=== PATIENT | female | born 1990 | race African-American/Black ===

== ENCOUNTER 2020-04-01 08:40 | Inpatient (IN) | payer OTHER ==
--- NOTE | 2020-04-01 09:41 | BHS.RME ---
Substance Use & Tx History - Substance Use History Alcohol Substance amount: 2 pints of vodka,1 liter of wine Frequency of use: Daily Substance route: Oral Date of Last Use: 03/31/20 - Last Treatment Date of last treatment: 02/2020 in [facility] 01/2020 not complete Where was last treatment: Detox Physical/Psych/Mental Status - Behavior Eye Contact: Normal - Cooperativeness Cooperativeness: Cooperative - Thinking Thought Processes: Logical Thought content: Future oriented - Physical Health Problems Is patient presently having any pain?: No Does patient presently have any injuries (include location): No Does patient currently have a fever: No CIWA Nausea/Vomitin Muscle Tremors: 3 Anxiety: 3 Agitation: 3 Paroxysmal Sweats: No Perspiration Orientation: 0-Oriented Tacttile Disturbances: 1-Very Mild Itch/Numbness Auditory Disturbances: 0-None Visual Disturbances: 0-None Headache: 2-Mild CIWA-Ar Total Score: 14
--- NOTE | 2020-04-01 09:55 | HP ---
CIWA Score Nausea/Vomitin Muscle Tremors: 3 Anxiety: 3 Agitation: 3 Paroxysmal Sweats: No Perspiration Orientation: 0-Oriented Tacttile Disturbances: 1-Very Mild Itch/Numbness Auditory Disturbances: 0-None Visual Disturbances: 0-None Headache: 2-Mild CIWA-Ar Total Score: 14 - Admission Criteria OASAS Guidelines: Admission for Medically Managed Detox: Requires at least one of the followin. CIWA greater than 12 2. Seizures within the past 24 hours 3. Delirium tremens within the past 24 hours 4. Hallucinations within the past 24 hours 5. Acute intervention needed for co occurring medical disorder 6. Acute intervention needed for co occurring psychiatric disorder 7. Severe withdrawal that cannot be handled at a lower level of care (continued vomiting, continued diarrhea, abnormal vital signs) requiring intravenous medication and/or fluids 8. Admitting History and Physical - Admission Chief Complaint: i need help to stop drinking alcohol History of Present Illness: this 29 years old female with alcohol dependence seeking detox History Source: Patient Limitations to Obtaining History: No Limitations - Past Medical History ...LMP: 03/24/20 ...: No Psych: Yes: Anxiety, Bipolar, Other (ptsd) Additional Past Medical History: induced in 09/2019 - Smoking History Smoking history: Current every day smoker Have you smoked in the past 12 months: Yes - Alcohol/Substance Use Hx Alcohol Use: Yes History of Substance Use: reports: None - Social History Usual Living Arrangement: Yes: With Parent Do you think of yourself as: Straight/Heterosexual Occupation: unemployed History of Recent Travel: No 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,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,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 Admission ROS S - HPI Chief Complaint: i need help to stop grinking alcohol Allergies/Adverse Reactions: Allergies Allergy/AdvReac Type Severity Reaction Status Date / Time No Known Allergies Allergy Verified 04/01/20 10:01 History of Present Illness: this 29 years old female with alcohol dependence,seeking detox,seen in [facility] last night,receiving ativan, seizure last syncope had vivitrol injection 3 days ago 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 no significant period of sobriety unemployed,no legal issue smoke e cigarette seen in [facility] last night received ativan Exam Limitations: No Limitations - Ebola screening Have you traveled outside of the country in the last 21 days: No Have you had contact with anyone from an Ebola affected area: No Have you been sick,other than usual withdrawal symptoms: No Do you have a fever: No - Review of Systems Constitutional: Loss of Appetite, Night Sweats, Changes in sleep EENT: reports: Nose Congestion Respiratory: reports: No Symptoms reported Cardiac: reports: No Symptoms Reported GI: reports: Diarrhea, Nausea, Abdominal cramping : reports: No Symptoms Reported Musculoskeletal: reports: Back Pain, Muscle Pain Integumentary: reports: Dryness Neuro: reports: Headache, Tremors Endocrine: reports: No Symptoms Reported Hematology: reports: No Symptoms Reported Psychiatric: reports: No Sypmtoms Reported, Judgement Intact, Mood/Affect Appro piate, Anxious (bipolar disorder) Patient History - Patient Medical History Hx Anemia: No Hx Asthma: No Hx Chronic Obstructive Pulmonary Disease (COPD): No Hx Cancer: No Hx Cardiac Disorders: No Hx Congestive Heart Failure: No Hx Hypertension: No Hx Hypercholesterolemia: No Hx Pacemaker: No HX Cerebrovascular Accident: No Hx Seizures: Yes (last 01/2020) Hx Dementia: No Hx Diabetes: No Hx Gastrointestinal Disorders: No Hx Liver Disease: No Hx Genitourinary Disorders: No Hx Sexually Transmitted Disorders: No Hx Renal Disease (ESRD): No Hx Thyroid Disease: No Hx Human Immunodeficiency Virus (HIV): No (last 01/2020) Hx Hepatitis C: No Hx Depression: No Hx Suicide Attempt: Yes (overdose at age 25 years) Hx Bipolar Disorder: Yes Hx Schizophrenia: No Other Medical History: no suicidal,no homicidal,on vivitrol injection last 3 days ago - Patient Surgical History Other Surgical History: induced in 09/2019 - PPD History Previous Implant?: Yes Documented Results: Negative w/o proof Implanted On Prior [facility] Admission?: No PPD to be Administered?: Yes - Reproductive History Patient is a Female of Child Bearing Age (11 -55 yrs old): Yes Last Menstrual Period: 04/01/20 Patient : No - Smoking Cessation Smoking history: Current every day smoker Have you smoked in the past 12 months: Yes Hx Chewing Tobacco Use: No Initiated information on smoking cessation: Yes 'Breaking Loose' booklet given: 04/01/20 - Substance & Tx. History Hx Alcohol Use: Yes Hx Substance Use: No Substance Use Type: Alcohol Hx Substance Use Treatment: Yes - Substances abused Alcohol Substance route: Oral Frequency: Daily Amount used: 2pints of vodka/1 litre of wine Age of first use: 18 Date of last use: 03/31/20 Admission Physical Exam [facility] - Vital Signs Vital Signs: Vital Signs Temperature 97.8 F 04/01/20 10:26 Pulse Rate 96 H 04/01/20 10:26 Respiratory Rate 18 04/01/20 10:26 Blood Pressure 150/103 H 04/01/20 10:26 O2 Sat by Pulse Oximetry (%) - Physical General Appearance: Yes: Moderate Distress, Tremorous, Anxious HEENTM: Yes: Normal ENT Inspection, EDGAR, Pharynx Normal Respiratory: Yes: Within Normal Limits, Lungs Clear, Normal Breath Sounds Neck: Yes: Within Normal Limits, Supple, Trachea in good position Breast: Yes: Breast Exam Deferred Cardiology: Yes: Within Normal Limits, Regular Rhythm, Regular Rate, S1, S2 Abdominal: Yes: Within Normal Limits, Normal Bowel Sounds, Non Tender, Flat, Soft Genitourinary: Yes: Within Normal Limits Back: Yes: Muscle Spasm Musculoskeletal: Yes: Back pain, Muscle Pain Extremities: Yes: Tremors 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
[2020-04-01 10:36] VITALS: BMI 23.1
[2020-04-01] MEDS ORDERED: LORazepam 1 MG TABLET PO PRN (10:59)
[2020-04-01] MEDS ORDERED: NICOTINE POLACRILEX 2 MG GUM BUC PRN (11:00)
[2020-04-01] MEDS ORDERED: ONDANSETRON *ODT* 4 MG TABLET SL ONE (11:00)
[2020-04-01] MEDS ORDERED: MENTHOL/PHENOL 1 EACH UD MM PRN (11:00)
[2020-04-01] MEDS ORDERED: METHOCARBAMOL 500 MG TABLET PO PRN (11:00)
[2020-04-01] MEDS ORDERED: MAG HYDROX/AL HYDROX/SIMETH 30 ML UNIT-DOSE CUP PO PRN (11:00)
[2020-04-01] MEDS ORDERED: IBUPROFEN 400 MG TABLET (FP) PO PRN (11:00)
[2020-04-01] MEDS ORDERED: MAGNESIUM CITRATE 300 ML BOTTLE PO PRN (11:00)
[2020-04-01] MEDS ORDERED: ACETAMINOPHEN 325 MG TABLET (FP) PO PRN ×2 (11:00)
[2020-04-01] MEDS ORDERED: MAGNESIUM HYDROX 2400MG/30ML ORAL SUSPENSION 30 ML CUP PO PRN (11:00)
[2020-04-01] MEDS ORDERED: BISMUTH SUBSALICYLATE 524 MG/30 ML UD PO PRN (11:00)
[2020-04-01] MEDS ORDERED: PNEUMOC 13-VAL CONJ-DIP CRM/PF 0.5 ML DISP.SYRIN IM ONE (11:05)
[2020-04-01] MEDS: hydrOXYzine PAMOATE 25 MG CAPSULE (FP) PO SCH ×3 (13:10→23:18)
[2020-04-01] MEDS: LORazepam 2 MG TABLET PO SCH ×3 (18:33→23:43)
[2020-04-01] MEDS: MELATONIN 5 MG TABLETS PO SCH (23:18)
[2020-04-01] MEDS: THIAMINE HCL 100 MG TABLET (FP) PO SCH (23:19)
[2020-04-02] MEDS: LORazepam 2 MG TABLET PO SCH ×4 (06:28→22:57)
[2020-04-02] MEDS: hydrOXYzine PAMOATE 25 MG CAPSULE (FP) PO SCH ×5 (06:28→22:57)
--- NOTE | 2020-04-02 09:57 | PN ---
S CIWA - CIWA Score Nausea/Vomitin-No Nausea/No Vomiting Muscle Tremors: 4-Moderate,w/Arms Extend Anxiety: 3 Agitation: 3 Paroxysmal Sweats: No Perspiration Orientation: 0-Oriented Tacttile Disturbances: 0-None Auditory Disturbances: 0-None Visual Disturbances: 1-Very Mild Sensitivity Headache: 1-Very Mild CIWA-Ar Total Score: 12 BHS Progress Note (SOAP) Subjective: 29 years old female admitted on 04/01/20 for alcohol withdrawal sx management treating with ativan detox regiment feeling tired ate 30% breakfast resting in bed adding ensure 120 ml po tid with meals Objective: 04/02/20 09:58 Vital Signs - 24 hr 04/01/20 04/01/20 04/01/20 10:26 11:53 12:18 Temperature 97.8 F 97.3 F L 96.9 F L Pulse Rate 96 H 82 92 H Respiratory 18 18 20 Rate Blood Pressure 150/103 H 133/92 141/96 O2 Sat by Pulse 99 Oximetry (%) 04/01/20 04/01/20 04/02/20 17:01 20:48 07:28 Temperature 97.3 F L 97.3 F L 98 F Pulse Rate 98 H 94 H 53 L Respiratory 18 18 16 Rate Blood Pressure 135/85 122/90 116/82 O2 Sat by Pulse 99 99 Oximetry (%) 04/02/20 08:49 Temperature 98.8 F Pulse Rate 89 Respiratory 16 Rate Blood Pressure 126/90 O2 Sat by Pulse Oximetry (%) Laboratory Tests 04/01/20 10:50 HIV Ag/Ab Combo Qual Negative 04/02/20 09:58 lab pending Assessment: 04/02/20 09:59 alcohol withdrawal 04/02/20 09:59 bmi 23.1 Plan: ativan regiment ensure
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
[2020-04-02] MEDS: PRENATAL VITAMINS W/ FOLIC ACID TABLET (FP) PO SCH (10:30)
[2020-04-02 10:46] LABS: HEMATOCRIT 38.5 % (32.4-45.2); HEMOGLOBIN 12.5 GM/dL (10.7-15.3); MCH 28.7 pg (25.7-33.7); MCHC 32.4 g/dl (32.0-36.0); MEAN CELL VOLUME 88.4 fl (80-96); MEAN PLT VOLUME 8.6 fl (7.5-11.1); PLATELET COUNT 225 K/MM3 (134-434); RBC 4.35 M/mm3 (3.60-5.2); RDW 15.5 % (11.6-15.6); WHITE BLOOD COUNT 4.7 K/mm3 (4.0-10.0)
[2020-04-02 11:35] LABS: ALBUMIN 4.9 g/dl (3.4-5.0); BILIRUBIN,TOTAL 1.9 mg/dL (0.2-1); BLOOD UREA NITROGEN 5.1 mg/dL (7-18); CALCIUM 9.4 mg/dL (8.5-10.1); CREATININE 0.7 mg/dL (0.55-1.3); POTASSIUM 4.3 mmol/L (3.5-5.1); TOT PROT 9.2 g/dl (6.4-8.2)
[2020-04-02] MEDS ORDERED: MIRTAZAPINE 15 MG TABLET (FP) PO SCH (22:00)
[2020-04-02] MEDS: MELATONIN 5 MG TABLETS PO SCH (22:56)
[2020-04-02] MEDS: THIAMINE HCL 100 MG TABLET (FP) PO SCH (22:57)
[2020-04-03] MEDS: hydrOXYzine PAMOATE 25 MG CAPSULE (FP) PO SCH ×2 (06:36→10:35)
[2020-04-03] MEDS: LORazepam 1 MG TABLET PO SCH ×2 (06:38→10:35)
[2020-04-03 09:53] VITALS: BP 115/72; PULSE 89; TEMP 97.3
--- NOTE | 2020-04-03 10:03 | PN ---
S CIWA - CIWA Score Nausea/Vomitin-No Nausea/No Vomiting Muscle Tremors: 2 Anxiety: 4-Mod. Anxious/Guarded Agitation: 0-Normal Activity Paroxysmal Sweats: No Perspiration Orientation: 0-Oriented Tacttile Disturbances: 0-None Auditory Disturbances: 0-None Visual Disturbances: 1-Very Mild Sensitivity Headache: 0-None Present CIWA-Ar Total Score: 7 BHS Progress Note (SOAP) Subjective: 29 years old female admitted on 04/01/20 for alcohol withdrawal sx management treating with ativan detox regiment ms juarez requests to be seen by a psychiatrist for resume lomotrigine prefers to discuss the dosage with the psychiatrist Objective: 04/03/20 10:02 Vital Signs - 24 hr 04/02/20 04/02/20 04/02/20 12:25 16:49 20:30 Temperature 98.8 F 96.9 F L 96.9 F L Pulse Rate 88 90 83 Respiratory 18 17 18 Rate Blood Pressure 136/93 108/71 106/72 O2 Sat by Pulse 98 98 Oximetry (%) 04/03/20 04/03/20 06:57 08:56 Temperature 96.7 F L 97.3 F L Pulse Rate 80 89 Respiratory 18 18 Rate Blood Pressure 105/68 115/72 O2 Sat by Pulse 100 Oximetry (%) Laboratory Tests 04/01/20 04/01/20 04/01/20 10:01 10:50 11:15 WBC RBC Hgb Hct MCV MCH MCHC RDW Plt Count MPV Sodium Potassium Chloride Carbon Dioxide Anion Gap BUN Creatinine Est GFR (CKD-EPI)AfAm Est GFR (CKD-EPI)NonAf Random Glucose Calcium Total Bilirubin AST ALT Alkaline Phosphatase Total Protein Albumin POC Urine HCG, Qual Negative Syphilis Serology COVID-19 (RASHAD) Not detected HIV Ag/Ab Combo Qual Negative 04/02/20 04/02/20 04/02/20 06:10 06:10 06:10 WBC 4.7 RBC 4.35 Hgb 12.5 Hct 38.5 MCV 88.4 MCH 28.7 MCHC 32.4 RDW 15.5 Plt Count 225 MPV 8.6 Sodium 135 L Potassium 4.3 Chloride 98 Carbon Dioxide 17 L Anion Gap 20 H BUN 5.1 L Creatinine 0.7 Est GFR (CKD-EPI)AfAm 135.70 Est GFR (CKD-EPI)NonAf 117.08 Random Glucose 90 Calcium 9.4 Total Bilirubin 1.9 H AST 46 H ALT 36 Alkaline Phosphatase 62 Total Protein 9.2 H Albumin 4.9 POC Urine HCG, Qual Syphilis Serology Non-reactive COVID-19 (RASHAD) HIV Ag/Ab Combo Qual lab noted Assessment: 04/03/20 10:03 alcohol withdrawal bipolar II Plan: ativan regiment lomotrigine
[2020-04-03] MEDS: PRENATAL VITAMINS W/ FOLIC ACID TABLET (FP) PO SCH (10:35)
--- NOTE | 2020-04-03 13:51 | DS ---
[facility] Detox Discharge Summary Admission Date: 04/01/20 Discharge Date: 04/03/20 - History Present History: Alcohol Dependence Additional Comments: 29 years old female was admitted on 04/01/20 for alcohol withdrawal sx management treated with ativan detox regiment seen by psychiatrist demetris dow ms juarez prefers to leave the detox today that she wants to go to [facility] mental health service for her lomotrigine General Appearance: Yes: Moderate Distress, Tremorous, Anxious HEENTM: Yes: Normal ENT Inspection, EDGAR, Pharynx Normal Respiratory: Yes: Within Normal Limits, Lungs Clear, Normal Breath Sounds Neck: Yes: Within Normal Limits, Supple, Trachea in good position Breast: Yes: Breast Exam Deferred Cardiology: Yes: Within Normal Limits, Regular Rhythm, Regular Rate, S1, S2 Abdominal: Yes: Within Normal Limits, Normal Bowel Sounds, Non Tender, Flat, Soft Genitourinary: Yes: Within Normal Limits Back: Yes: Muscle Spasm Musculoskeletal: Yes: Back pain, Muscle Pain Extremities: Yes: Tremors 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, Fully Oriented, Alert, Motor Strength 5/5 Integumentary: Yes: Dry Lymphatic: Yes: Within Normal Limits Pertinent Past History: time for discharge 46 minutes treatment team met with ms juarez to discuss the benefits of ativan regiment completion ms juarez prefers to go to [facility] for her alcohol addiction treatment and mental health service - Physical Exam Results Vital Signs: Vital Signs Temperature 97.3 F L 04/03/20 08:56 Pulse Rate 89 04/03/20 08:56 Respiratory Rate 18 04/03/20 08:56 Blood Pressure 115/72 04/03/20 08:56 O2 Sat by Pulse Oximetry (%) 100 04/03/20 06:57 Pertinent Admission Physical Exam Findings: alcohol withdrawal Laboratory Tests 04/01/20 04/01/20 04/01/20 10:01 10:50 11:15 WBC RBC Hgb Hct MCV MCH MCHC RDW Plt Count MPV Sodium Potassium Chloride Carbon Dioxide Anion Gap BUN Creatinine Est GFR (CKD-EPI)AfAm Est GFR (CKD-EPI)NonAf Random Glucose Calcium Total Bilirubin AST ALT Alkaline Phosphatase Total Protein Albumin POC Urine HCG, Qual Negative Syphilis Serology COVID-19 (RASHAD) Not detected HIV Ag/Ab Combo Qual Negative 04/02/20 04/02/20 04/02/20 06:10 06:10 06:10 WBC 4.7 RBC 4.35 Hgb 12.5 Hct 38.5 MCV 88.4 MCH 28.7 MCHC 32.4 RDW 15.5 Plt Count 225 MPV 8.6 Sodium 135 L Potassium 4.3 Chloride 98 Carbon Dioxide 17 L Anion Gap 20 H BUN 5.1 L Creatinine 0.7 Est GFR (CKD-EPI)AfAm 135.70 Est GFR (CKD-EPI)NonAf 117.08 Random Glucose 90 Calcium 9.4 Total Bilirubin 1.9 H AST 46 H ALT 36 Alkaline Phosphatase 62 Total Protein 9.2 H Albumin 4.9 POC Urine HCG, Qual Syphilis Serology Non-reactive COVID-19 (RASHAD) HIV Ag/Ab Combo Qual lab noted - Treatment Hospital Course: Detox Protocol Followed, Detoxed Safely, Responded well, Discharged Condition Good, Rehab Referral Accepted Patient has Accepted a Rehab Referral to: [facility] substance abuse treatment center - Medication Discharge Medications: Ambulatory Orders Lamotrigine [Lamictal -] 25 mg PO BID 04/01/20 Mirtazapine [Remeron -] 15 mg PO HS 04/01/20 - Diagnosis (1) Alcohol dependence with uncomplicated withdrawal Status: Acute (2) Bipolar II disorder Status: Suspected - AMA Did Patient Leave Against Medical Advice: No CIWA Score - CIWA Score Nausea/Vomitin-No Nausea/No Vomiting Muscle Tremors: 2 Anxiety: 2 Agitation: 0-Normal Activity Paroxysmal Sweats: No Perspiration Orientation: 0-Oriented Tacttile Disturbances: 0-None Auditory Disturbances: 0-None Visual Disturbances: 0-None Headache: 0-None Present CIWA-Ar Total Score: 4
--- NOTE | 2020-04-03 16:02 | EKG ---
Test Reason : Blood Pressure : / mmHG Vent. Rate : 077 BPM Atrial Rate : 077 BPM P-R Int : 114 ms QRS Dur : 070 ms QT Int : 424 ms P-R-T Axes : 073 023 023 degrees QTc Int : 479 ms SINUS RHYTHM WITH PREMATURE ATRIAL COMPLEXES OTHERWISE NORMAL ECG NO PREVIOUS ECGS AVAILABLE Confirmed by MIA ANGUIANO MD ([id number]) on 04/03/2020 4:02:03 PM Referred By: Confirmed By:MIA ANGUIANO MD
[2020-04-04] MEDS ORDERED: LORazepam 0.5 MG TABLET PO PRN
[2020-04-04] MEDS ORDERED: LORazepam 0.5 MG TABLET PO SCH (05:00)
[2020-04-05] MEDS ORDERED: LORazepam 0.5 MG TABLET PO ONE (05:00)
== END 2020-04-03 11:20 | disposition home or self-care (01) | DRG 775 ==
LOC: YASAS 08:40 → Y3N 11:23
PROVIDERS: ADMIT Allergy & Immunology; ATTEND Allergy & Immunology
PROC: HZ2ZZZZ Detoxification Services for Substance Abuse Treatment (ICD-10-PCS; principal; 2020-04-01)
DX: F10.230 Alcohol dependence with withdrawal, uncomplicated (principal); F17.210 Nicotine dependence, cigarettes, uncomplicated; F31.81 Bipolar II disorder; F41.9 Anxiety disorder, unspecified; F43.10 Post-traumatic stress disorder, unspecified; G40.909 Epilepsy, unspecified, not intractable, without status epilepticus; Z62.810 Personal history of physical and sexual abuse in childhood; Z91.410 Personal history of adult physical and sexual abuse; Z91.5 Personal history of self-harm; Z56.0 Unemployment, unspecified
CPT/HCPCS: 36415; 80053; 81025; 85027; 86780; 87389; 93005; 93010; U0003

== ENCOUNTER 2021-01-20 08:04 | Inpatient (IN) | payer OTHER ==
[2021-01-20 08:44] VITALS: BMI 25.8
[2021-01-20] MEDS ORDERED: ACETAMINOPHEN 325 MG TABLET (FP) PO PRN ×2 (09:31)
[2021-01-20] MEDS ORDERED: MENTHOL/PHENOL 1 EACH UD MM PRN (09:31)
[2021-01-20] MEDS ORDERED: MAGNESIUM CITRATE 300 ML BOTTLE PO PRN (09:31)
[2021-01-20] MEDS ORDERED: MAG HYDROX/AL HYDROX/SIMETH 30 ML UNIT-DOSE CUP PO PRN (09:31)
[2021-01-20] MEDS ORDERED: BISMUTH SUBSALICYLATE 524 MG/30 ML PO PRN (09:31)
[2021-01-20] MEDS ORDERED: ONDANSETRON *ODT* 4 MG TABLET SL PRN (09:31)
[2021-01-20] MEDS ORDERED: LORazepam 1 MG TABLET PO PRN (09:31)
[2021-01-20] MEDS: LORazepam 2 MG TABLET PO SCH ×3 (11:18→22:31)
[2021-01-20] MEDS: IBUPROFEN 400 MG TABLET (FP) PO PRN ×2 (11:18→20:04)
[2021-01-20] MEDS: METHOCARBAMOL 500 MG TABLET PO PRN (11:18)
[2021-01-20] MEDS: hydrOXYzine PAMOATE 25 MG CAPSULE (FP) PO SCH ×4 (11:19→22:28)
[2021-01-20] MEDS: PRENATAL VITAMINS W/ FOLIC ACID TABLET (FP) PO SCH (11:19)
[2021-01-20] MEDS ORDERED: PANTOPRAZOLE 40 MG TABLET PO ONE (20:42)
[2021-01-20] MEDS: QUEtiapine FUMARATE 50 MG TABLET PO SCH (22:28)
[2021-01-20] MEDS: THIAMINE HCL 100 MG TABLET (FP) PO SCH (22:30)
[2021-01-20] MEDS: MELATONIN 5 MG TABLETS PO SCH (22:31)
[2021-01-21] MEDS: LORazepam 2 MG TABLET PO SCH ×4 (06:54→22:22)
[2021-01-21] MEDS: hydrOXYzine PAMOATE 25 MG CAPSULE (FP) PO SCH ×3 (06:56→13:49)
[2021-01-21] MEDS: PRENATAL VITAMINS W/ FOLIC ACID TABLET (FP) PO SCH (10:39)
[2021-01-21] MEDS: PANTOPRAZOLE 40 MG TABLET PO SCH (10:40)
[2021-01-21] MEDS: METHOCARBAMOL 500 MG TABLET PO PRN ×2 (10:42→22:22)
[2021-01-21] MEDS ORDERED: SUCRALFATE 1 GM TABLET (FP) PO ONE (16:30)
[2021-01-21] MEDS: MELATONIN 5 MG TABLETS PO SCH (22:22)
[2021-01-21] MEDS: QUEtiapine FUMARATE 50 MG TABLET PO SCH (22:22)
[2021-01-21] MEDS: THIAMINE HCL 100 MG TABLET (FP) PO SCH (22:22)
[2021-01-22] MEDS: LORazepam 1 MG TABLET PO SCH ×4 (05:26→23:18)
[2021-01-22] MEDS: PRENATAL VITAMINS W/ FOLIC ACID TABLET (FP) PO SCH (10:18)
[2021-01-22] MEDS: PANTOPRAZOLE 40 MG TABLET PO SCH (10:18)
[2021-01-22 10:19] LABS: CALCIUM 8.4 mg/dL (8.5-10.1); HEMATOCRIT 33.8 % (32.4-45.2); HEMOGLOBIN 11.2 GM/dL (10.7-15.3); MCH 29.3 pg (25.7-33.7); MCHC 33.2 g/dl (32.0-36.0); MEAN CELL VOLUME 88.2 fl (80-96); PLATELET COUNT 149 K/MM3 (134-434); RBC 3.83 M/mm3 (3.60-5.2); RDW 19.9 % (11.6-15.6)
[2021-01-22 10:20] LABS: ALBUMIN 3.1 g/dl (3.4-5.0); BLOOD UREA NITROGEN 5.4 mg/dL (7-18)
[2021-01-22 10:23] LABS: BILIRUBIN,TOTAL 0.5 mg/dL (0.2-1); CREATININE 0.4 mg/dL (0.55-1.3); TOT PROT 6.2 g/dl (6.4-8.2)
[2021-01-22] MEDS: IBUPROFEN 400 MG TABLET (FP) PO PRN (12:03)
[2021-01-22 13:28] LABS: HIV INTERPRETATION NEGATIVE (NEGATIVE)
[2021-01-22] MEDS: SIMETHICONE 80 MG TAB.CHEW (FP) PO SCH ×3 (13:49→22:37)
[2021-01-22] MEDS: THIAMINE HCL 100 MG TABLET (FP) PO SCH (22:35)
[2021-01-22] MEDS: MELATONIN 5 MG TABLETS PO SCH (22:36)
[2021-01-22] MEDS: QUEtiapine FUMARATE 50 MG TABLET PO SCH (22:36)
[2021-01-22] MEDS: hydrOXYzine PAMOATE 25 MG CAPSULE (FP) PO PRN (22:38)
[2021-01-23] MEDS ORDERED: LORazepam 0.5 MG TABLET PO PRN
[2021-01-23] MEDS: LORazepam 0.5 MG TABLET PO SCH ×4 (05:58→22:34)
[2021-01-23] MEDS: IBUPROFEN 400 MG TABLET (FP) PO PRN (07:41)
[2021-01-23] MEDS: SIMETHICONE 80 MG TAB.CHEW (FP) PO SCH ×4 (10:46→22:35)
[2021-01-23] MEDS: PANTOPRAZOLE 40 MG TABLET PO SCH (10:46)
[2021-01-23] MEDS: METHOCARBAMOL 500 MG TABLET PO PRN (10:47)
[2021-01-23] MEDS: PRENATAL VITAMINS W/ FOLIC ACID TABLET (FP) PO SCH (10:48)
[2021-01-23] MEDS: MAGNESIUM HYDROX 2400MG/30ML ORAL SUSPENSION 30 ML CUP PO PRN ×2 (10:49→17:56)
[2021-01-23] MEDS: THIAMINE HCL 100 MG TABLET (FP) PO SCH (22:35)
[2021-01-23] MEDS: QUEtiapine FUMARATE 50 MG TABLET PO SCH (22:35)
[2021-01-23] MEDS: MELATONIN 5 MG TABLETS PO SCH (22:35)
[2021-01-23] MEDS: hydrOXYzine PAMOATE 25 MG CAPSULE (FP) PO PRN (22:37)
[2021-01-24] MEDS ORDERED: LORazepam 0.5 MG TABLET PO ONE (05:00)
[2021-01-24 09:29] VITALS: BP 148/72; PULSE 68; TEMP 98.1
[2021-01-24] MEDS: PRENATAL VITAMINS W/ FOLIC ACID TABLET (FP) PO SCH (10:10)
[2021-01-24] MEDS: SIMETHICONE 80 MG TAB.CHEW (FP) PO SCH (10:10)
[2021-01-24] MEDS: PANTOPRAZOLE 40 MG TABLET PO SCH (10:10)
== END 2021-01-24 11:53 | disposition home or self-care (01) | DRG 775 ==
LOC: YASAS 08:04 → Y6N 09:48
PROVIDERS: ADMIT Allergy & Immunology; ATTEND Allergy & Immunology
PROC: HZ2ZZZZ Detoxification Services for Substance Abuse Treatment (ICD-10-PCS; principal; 2021-01-20)
DX: F10.230 Alcohol dependence with withdrawal, uncomplicated (principal); F31.81 Bipolar II disorder; F10.24 Alcohol dependence with alcohol-induced mood disorder; F43.10 Post-traumatic stress disorder, unspecified; K21.9 Gastro-esophageal reflux disease without esophagitis; R56.9 Unspecified convulsions; Z62.810 Personal history of physical and sexual abuse in childhood; Z91.410 Personal history of adult physical and sexual abuse; Z91.5 Personal history of self-harm
CPT/HCPCS: 36415; 80053; 81025; 84484; 85027; 86780; 87389; 93005; 93010; C9803; U0003; U0005